=== PATIENT | male | born 1950 | race Caucasian/White ===

== ENCOUNTER → 2020-09-06 | Outpatient (CLI) | payer BC ==
[~2020-09-06] MED LIST: APIX5TAB PO; LOSA1TAB19 PO; METO50TA82 PO
[2020-09-06 14:34] LABS: ALBUMIN 3.6 g/dL (3.4-5.0); ANION GAP 5 mmol/L (5-15); CALCIUM 8.9 mg/dL (8.5-10.1); CHLORIDE 107 mmol/L (98-107)
[2020-09-06 14:38] LABS: ALANINE AMINOTRANSFERASE 31 U/L (12-78); ALKALINE PHOSPHATASE 82 U/L (45-117); BASOPHILS % (AUTO) 1 % (0-1); BILIRUBIN,TOTAL 0.8 mg/dL (0.2-1.0); CREATININE 1.24 mg/dL (0.7-1.3); EOSINOPHILS % (AUTO) 2 % (1-7); LYMPHOCYTES % (AUTO) 24 % (22-44); MEAN CORPUSCULAR HEMOGLOBIN 34.5 pg (27.5-34.5); MEAN CORPUSCULAR HGB CONC 34.8 g/dL (33.2-36.2); MEAN PLATELET VOLUME 10.8 fL (7.4-10.4); MONOCYTES % (AUTO) 10 % (2-9); NEUTROPHILS % (AUTO) 65 % (42-75); PLATELET COUNT 213 x10^3/uL (130-400); RED BLOOD COUNT 5.19 x10^6/uL (4.38-5.82); TOTAL PROTEIN 7.2 g/dL (6.4-8.2)
== END | disposition home or self-care (01) ==
LOC: STAR 13:14
PROVIDERS: ATTEND Urology
DX: Z01.818 Encounter for other preprocedural examination (principal); C61 Malignant neoplasm of prostate; R94.31 Abnormal electrocardiogram [ECG] [EKG]; R00.1 Bradycardia, unspecified; I44.0 Atrioventricular block, first degree; I21.19 ST elevation (STEMI) myocardial infarction involving other coronary artery of inferior wall; Z20.822 Contact with and (suspected) exposure to COVID-19
CPT/HCPCS: 36415; 80053; 85025; 93005; U0003; U0005

== ENCOUNTER 2020-09-12 11:00 | Inpatient (IN) | payer BC ==
[~2020-09-12] VITALS: Ht 185.4 cm; Wt 96.2 kg
[~2020-09-12 11:00] MED LIST changes: +FENTANYL PF 250 MCG/5ML ONE; +MIDAZOLAM 1 MG/ML, 2ML ONE
[2020-09-12] MEDS ORDERED: CHLORHEXIDINE 15 ML UDC PO ONE (11:30)
[2020-09-12] MEDS ORDERED: LACTATED RINGERS 1,000 ML IV SCH (11:30)
[2020-09-12 11:31] VITALS: BP 144/100
[2020-09-12] MEDS ORDERED: CHLORHEXIDINE 15 ML UDC ONE (11:39)
[2020-09-12] MEDS ORDERED: OPIUM/BELLADONNA SUPP.RECT 16.2-60 MG ONE (11:48)
[2020-09-12] MEDS ORDERED: BUPIVACAINE/PF 0.25% ONE (11:48)
[2020-09-12] MEDS ORDERED: LOVENOX INJ (12:06)
[2020-09-12] MEDS ORDERED: SUGAMMADEX 200 MG/2 ML IVPush ONE (12:19)
[2020-09-12] MEDS ORDERED: DEXAMETHASONE 4 MG/ML, 1ML ONE (12:19)
[2020-09-12] MEDS ORDERED: PROPOFOL 10 MG/ML, 20ML ONE (12:19)
[2020-09-12] MEDS ORDERED: SUCCINYLCHOLINE 20 MG/ML, 10ML ONE (12:19)
[2020-09-12] MEDS ORDERED: CEFAZOLIN 1,000 MG ONE (12:19)
[2020-09-12] MEDS ORDERED: ROCURONIUM 10 MG/ML,10ML ONE (12:19)
[2020-09-12] MEDS ORDERED: ONDANSETRON 2MG/ML, 2ML ONE ×2 (12:19→20:42)
[2020-09-12] MEDS ORDERED: FENTANYL PF 100 MCG/2ML ONE ×2 (16:48→17:43)
[2020-09-12] MEDS: FENTANYL PF 100 MCG/2ML IV PRN ×4 (16:50→18:01)
[2020-09-12] MEDS ORDERED: LABETALOL 5MG/ML, 20ML IV PRN (17:00)
[2020-09-12] MEDS ORDERED: ONDANSETRON 2MG/ML, 2ML IVPush PRN (17:00)
[2020-09-12] MEDS ORDERED: OXYcodone 5 MG/5 ML ORAL.SOL UDC PO PRN (17:00)
[2020-09-12] MEDS ORDERED: ALBUTEROL SULFATE 2.5 MG/3 ML NPPB PRN (17:00)
[2020-09-12] MEDS ORDERED: PROMETHAZINE 25 MG/ML, 1ML IV PRN (17:00)
[2020-09-12] MEDS ORDERED: hydrALAzine 20 MG/ML, 1ML IV PRN (17:00)
[2020-09-12] MEDS ORDERED: MEPERIDINE/PF 25MG/0.5ML IVPush PRN (17:00)
[2020-09-12] MEDS ORDERED: METOCLOPRAMIDE 5 MG/ML, 2ML IV PRN (17:00)
[2020-09-12] MEDS ORDERED: HYDROmorphone 1 MG/ML, 1ML INJ IV PRN (17:00)
[2020-09-12] MEDS ORDERED: DIAZEPAM 5 MG/ML, 2ML IV PRN ×2 (17:00)
[2020-09-12] MEDS ORDERED: KETOROLAC 30 MG/1 ML IV PRN (17:00)
[2020-09-12] MEDS ORDERED: OXYcodone 5 MG/5 ML ORAL.SOL UDC ONE (17:26)
[2020-09-12 19:15] VITALS: BP 109/74
[2020-09-12] MEDS: FAMOTIDINE 20 MG/2 ML IVPush SCH (20:45)
[2020-09-12] MEDS: MORPHINE SULFATE 4 MG/ML, 1ML IV PRN (20:45)
[2020-09-12] MEDS: ACETAMINOPHEN 500 MG TABLET PO SCH (20:45)
[2020-09-12] MEDS: LOSARTAN 25MG TABLET PO SCH (21:00)
[2020-09-12] MEDS: ONDANSETRON 2MG/ML, 2ML IVPush PRN (21:35)
[2020-09-13 00:12] VITALS: BP 89/64
[2020-09-13] MEDS: D5%-0.45NACL+KCL 20MEQ 1,000 ML IV SCH ×3 (01:28→20:07)
[2020-09-13] MEDS: MORPHINE SULFATE 4 MG/ML, 1ML IV PRN ×2 (01:28→04:09)
[2020-09-13] MEDS: ACETAMINOPHEN 500 MG TABLET PO SCH ×3 (02:52→18:35)
[2020-09-13] MEDS: OPIUM/BELLADONNA SUPP.RECT 16.2-60 MG PR PRN ×3 (02:52→18:35)
[2020-09-13] MEDS: ONDANSETRON 2MG/ML, 2ML IVPush PRN ×2 (02:53→07:05)
[2020-09-13 03:49] VITALS: BP 93/65
[2020-09-13 05:43] LABS: ANION GAP 6 mmol/L (5-15); CALCIUM 7.9 mg/dL (8.5-10.1); CHLORIDE 109 mmol/L (98-107); CREATININE 1.16 mg/dL (0.7-1.3)
[2020-09-13] MEDS ORDERED: ENOXAPARIN 40 MG/0.4 ML SQ ONE (06:00)
[2020-09-13 07:39] VITALS: BP 117/79
[2020-09-13] MEDS: FAMOTIDINE 20 MG/2 ML IVPush SCH ×2 (07:51→20:08)
[2020-09-13] MEDS: LOSARTAN 25MG TABLET PO SCH ×2 (07:51→20:08)
[2020-09-13] MEDS: OXYcodone IR 5MG TABLET PO PRN ×2 (07:51→18:36)
[2020-09-13] MEDS: HYDROCHLOROTHIAZIDE 12.5 MG CAPSULE PO SCH (07:51)
[2020-09-13] MEDS: METOPROLOL TARTRATE 50 MG TAB PO SCH (09:00)
[2020-09-13 12:38] LABS: BASOPHILS % (AUTO) 0 % (0-1); EOSINOPHILS % (AUTO) 0 % (1-7); LYMPHOCYTES % (AUTO) 7 % (22-44); MEAN CORPUSCULAR HEMOGLOBIN 34.4 pg (27.5-34.5); MEAN CORPUSCULAR HGB CONC 34.9 g/dL (33.2-36.2); MEAN PLATELET VOLUME 10.7 fL (7.4-10.4); MONOCYTES % (AUTO) 10 % (2-9); NEUTROPHILS % (AUTO) 84 % (42-75); PLATELET COUNT 199 x10^3/uL (130-400); RED BLOOD COUNT 3.47 x10^6/uL (4.38-5.82); RED CELL DISTRIBUTION WIDTH 12.6 % (9.4-14.8)
[2020-09-13 13:30] VITALS: BP 100/68
[2020-09-13 19:00] VITALS: BP 104/69
[2020-09-14] MEDS: ACETAMINOPHEN 500 MG TABLET PO SCH ×4 (00:54→22:22)
[2020-09-14 00:58] VITALS: BP 98/69
[2020-09-14] MEDS: D5%-0.45NACL+KCL 20MEQ 1,000 ML IV SCH ×3 (03:59→23:52)
[2020-09-14] MEDS: OPIUM/BELLADONNA SUPP.RECT 16.2-60 MG PR PRN ×2 (03:59→22:21)
[2020-09-14 05:49] LABS: BASOPHILS % (AUTO) 0 % (0-1); EOSINOPHILS % (AUTO) 0 % (1-7); LYMPHOCYTES % (AUTO) 14 % (22-44); MEAN CORPUSCULAR HEMOGLOBIN 35.2 pg (27.5-34.5); MEAN CORPUSCULAR HGB CONC 35.4 g/dL (33.2-36.2); MEAN PLATELET VOLUME 10.6 fL (7.4-10.4); MONOCYTES % (AUTO) 10 % (2-9); NEUTROPHILS % (AUTO) 75 % (42-75); PLATELET COUNT 163 x10^3/uL (130-400); RED BLOOD COUNT 2.77 x10^6/uL (4.38-5.82); RED CELL DISTRIBUTION WIDTH 12.8 % (9.4-14.8)
[2020-09-14 07:20] VITALS: BP 100/64
[2020-09-14] MEDS: LOSARTAN 25MG TABLET PO SCH ×2 (07:42→22:22)
[2020-09-14] MEDS: FAMOTIDINE 20 MG/2 ML IVPush SCH ×2 (07:43→22:22)
[2020-09-14] MEDS: OXYcodone IR 5MG TABLET PO PRN ×2 (07:43→15:22)
[2020-09-14] MEDS: HYDROCHLOROTHIAZIDE 12.5 MG CAPSULE PO SCH (07:43)
[2020-09-14] MEDS: METOPROLOL TARTRATE 50 MG TAB PO SCH (07:44)
[2020-09-14] MEDS ORDERED: SODIUM CHLORIDE 0.9% 250 ML IV SCH (08:00)
[2020-09-14] MEDS: MORPHINE SULFATE 4 MG/ML, 1ML IV PRN (10:47)
[2020-09-14 13:02] LABS: BASOPHILS % (AUTO) 1 % (0-1); EOSINOPHILS % (AUTO) 0 % (1-7); LYMPHOCYTES % (AUTO) 14 % (22-44); MEAN CORPUSCULAR HGB CONC 34.9 g/dL (33.2-36.2); MEAN PLATELET VOLUME 10.1 fL (7.4-10.4); MONOCYTES % (AUTO) 8 % (2-9); NEUTROPHILS % (AUTO) 78 % (42-75); PLATELET COUNT 166 x10^3/uL (130-400); RED BLOOD COUNT 2.75 x10^6/uL (4.38-5.82); RED CELL DISTRIBUTION WIDTH 12.6 % (9.4-14.8)
[2020-09-14 15:23] LABS: ANION GAP 4 mmol/L (5-15); CALCIUM 7.8 mg/dL (8.5-10.1); CHLORIDE 105 mmol/L (98-107)
[2020-09-14 18:08] LABS: BASOPHILS % (AUTO) 0 % (0-1); EOSINOPHILS % (AUTO) 0 % (1-7); LYMPHOCYTES % (AUTO) 20 % (22-44); MEAN CORPUSCULAR HEMOGLOBIN 34.9 pg (27.5-34.5); MEAN CORPUSCULAR HGB CONC 34.8 g/dL (33.2-36.2); MEAN PLATELET VOLUME 9.7 fL (7.4-10.4); MONOCYTES % (AUTO) 8 % (2-9); NEUTROPHILS % (AUTO) 72 % (42-75); PLATELET COUNT 192 x10^3/uL (130-400); RED BLOOD COUNT 2.86 x10^6/uL (4.38-5.82); RED CELL DISTRIBUTION WIDTH 12.6 % (9.4-14.8)
[2020-09-14 19:42] VITALS: BP 103/68
[2020-09-15 00:55] VITALS: BP 120/71
[2020-09-15] MEDS: ACETAMINOPHEN 500 MG TABLET PO SCH ×4 (04:30→23:00)
[2020-09-15 05:42] LABS: BASOPHILS % (AUTO) 0 % (0-1); EOSINOPHILS % (AUTO) 1 % (1-7); LYMPHOCYTES % (AUTO) 17 % (22-44); MEAN CORPUSCULAR HEMOGLOBIN 35.3 pg (27.5-34.5); MEAN CORPUSCULAR HGB CONC 35.1 g/dL (33.2-36.2); MEAN PLATELET VOLUME 10.1 fL (7.4-10.4); MONOCYTES % (AUTO) 9 % (2-9); NEUTROPHILS % (AUTO) 73 % (42-75); PLATELET COUNT 192 x10^3/uL (130-400); RED BLOOD COUNT 2.84 x10^6/uL (4.38-5.82); RED CELL DISTRIBUTION WIDTH 12.6 % (9.4-14.8)
[2020-09-15 06:50] VITALS: BP 109/71
[2020-09-15] MEDS: METOPROLOL TARTRATE 50 MG TAB PO SCH (09:00)
[2020-09-15] MEDS: FAMOTIDINE 20 MG/2 ML IVPush SCH ×2 (09:29→20:45)
[2020-09-15] MEDS: HYDROCHLOROTHIAZIDE 12.5 MG CAPSULE PO SCH (09:29)
[2020-09-15] MEDS: LOSARTAN 25MG TABLET PO SCH ×2 (09:29→20:45)
[2020-09-15] MEDS: D5%-0.45NACL+KCL 20MEQ 1,000 ML IV SCH (09:30)
[2020-09-15] MEDS: ONDANSETRON 2MG/ML, 2ML IVPush PRN (09:36)
[2020-09-15 14:22] VITALS: BP 120/78
[2020-09-15] MEDS ORDERED: ENOXAPARIN 40 MG/0.4 ML SQ ONE (14:30)
[2020-09-15] MEDS: ENOXAPARIN 40 MG/0.4 ML SQ SCH (14:30)
[2020-09-15 16:26] LABS: BASOPHILS % (AUTO) 0 % (0-1); EOSINOPHILS % (AUTO) 0 % (1-7); LYMPHOCYTES % (AUTO) 10 % (22-44); MEAN CORPUSCULAR HEMOGLOBIN 35.2 pg (27.5-34.5); MEAN CORPUSCULAR HGB CONC 35.6 g/dL (33.2-36.2); MEAN PLATELET VOLUME 9.6 fL (7.4-10.4); MONOCYTES % (AUTO) 7 % (2-9); NEUTROPHILS % (AUTO) 82 % (42-75); PLATELET COUNT 209 x10^3/uL (130-400); RED BLOOD COUNT 2.94 x10^6/uL (4.38-5.82); RED CELL DISTRIBUTION WIDTH 12.7 % (9.4-14.8)
[2020-09-15 19:00] VITALS: BP 105/70
[2020-09-15] MEDS: OXYcodone IR 5MG TABLET PO PRN (19:13)
[2020-09-15] MEDS: OPIUM/BELLADONNA SUPP.RECT 16.2-60 MG PR PRN (20:45)
[2020-09-15] MEDS: MORPHINE SULFATE 4 MG/ML, 1ML IV PRN (21:17)
[2020-09-16 02:19] VITALS: BP 122/79
[2020-09-16] MEDS: D5%-0.45NACL+KCL 20MEQ 1,000 ML IV SCH ×3 (02:48→20:48)
[2020-09-16] MEDS: OPIUM/BELLADONNA SUPP.RECT 16.2-60 MG PR PRN ×2 (05:19→20:49)
[2020-09-16] MEDS: ACETAMINOPHEN 500 MG TABLET PO SCH ×4 (05:19→23:00)
[2020-09-16] MEDS: MORPHINE SULFATE 4 MG/ML, 1ML IV PRN ×3 (05:48→18:24)
[2020-09-16 05:58] LABS: BASOPHILS % (AUTO) 0 % (0-1); EOSINOPHILS % (AUTO) 2 % (1-7); LYMPHOCYTES % (AUTO) 13 % (22-44); MEAN CORPUSCULAR HEMOGLOBIN 35.6 pg (27.5-34.5); MEAN CORPUSCULAR HGB CONC 35.6 g/dL (33.2-36.2); MEAN PLATELET VOLUME 10.1 fL (7.4-10.4); MONOCYTES % (AUTO) 7 % (2-9); NEUTROPHILS % (AUTO) 78 % (42-75); PLATELET COUNT 200 x10^3/uL (130-400); RED BLOOD COUNT 2.77 x10^6/uL (4.38-5.82); RED CELL DISTRIBUTION WIDTH 12.9 % (9.4-14.8)
[2020-09-16 07:22] VITALS: BP 112/70
[2020-09-16] MEDS: METOPROLOL TARTRATE 50 MG TAB PO SCH (09:00)
[2020-09-16] MEDS ORDERED: ENOXAPARIN 40 MG/0.4 ML SQ SCH (09:00)
[2020-09-16] MEDS: HYDROCHLOROTHIAZIDE 12.5 MG CAPSULE PO SCH (11:00)
[2020-09-16] MEDS: FAMOTIDINE 20 MG/2 ML IVPush SCH ×2 (11:00→20:48)
[2020-09-16] MEDS: LOSARTAN 25MG TABLET PO SCH ×2 (11:00→20:48)
[2020-09-16] MEDS: ENOXAPARIN 40 MG/0.4 ML SQ SCH (11:35)
[2020-09-16 14:05] VITALS: BP 123/81
[2020-09-16 20:14] VITALS: BP 106/70
[2020-09-16] MEDS: ONDANSETRON 2MG/ML, 2ML IVPush PRN (20:48)
[2020-09-17 03:55] VITALS: BP 97/64
[2020-09-17] MEDS: ACETAMINOPHEN 500 MG TABLET PO SCH ×4 (04:23→22:45)
[2020-09-17] MEDS: D5%-0.45NACL+KCL 20MEQ 1,000 ML IV SCH ×3 (04:24→22:43)
[2020-09-17] MEDS: ONDANSETRON 2MG/ML, 2ML IVPush PRN ×3 (04:28→22:42)
[2020-09-17 07:48] VITALS: BP 110/74
[2020-09-17] MEDS: METOPROLOL TARTRATE 50 MG TAB PO SCH (08:16)
[2020-09-17] MEDS: FAMOTIDINE 20 MG/2 ML IVPush SCH ×2 (08:16→22:44)
[2020-09-17] MEDS: LOSARTAN 25MG TABLET PO SCH ×2 (08:16→22:44)
[2020-09-17] MEDS: HYDROCHLOROTHIAZIDE 12.5 MG CAPSULE PO SCH (08:17)
[2020-09-17] MEDS ORDERED: ONDANSETRON 2MG/ML, 2ML ONE (10:08)
[2020-09-17 10:33] LABS: ANION GAP 3 mmol/L (5-15); CALCIUM 8.5 mg/dL (8.5-10.1); CHLORIDE 104 mmol/L (98-107); CREATININE 0.95 mg/dL (0.7-1.3)
[2020-09-17] MEDS: METOCLOPRAMIDE 5 MG/ML, 2ML IVPush SCH ×3 (11:36→22:45)
[2020-09-17] MEDS ORDERED: ONDANSETRON 2MG/ML, 2ML IVPush PRN (13:00)
[2020-09-17 13:56] VITALS: BP 98/61
[2020-09-17] MEDS: ENOXAPARIN 40 MG/0.4 ML SQ SCH (15:17)
[2020-09-17 18:46] VITALS: BP 114/66
[2020-09-18 01:33] VITALS: BP 109/69
[2020-09-18] MEDS: ACETAMINOPHEN 500 MG TABLET PO SCH ×4 (05:53→22:05)
[2020-09-18] MEDS: OPIUM/BELLADONNA SUPP.RECT 16.2-60 MG PR PRN ×2 (05:53→23:39)
[2020-09-18] MEDS: D5%-0.45NACL+KCL 20MEQ 1,000 ML IV SCH ×4 (05:53→22:20)
[2020-09-18] MEDS: ONDANSETRON 2MG/ML, 2ML IVPush PRN (05:53)
[2020-09-18] MEDS: METOCLOPRAMIDE 5 MG/ML, 2ML IVPush SCH ×4 (05:56→22:05)
[2020-09-18 07:59] VITALS: BP 122/78
[2020-09-18] MEDS: METOPROLOL TARTRATE 50 MG TAB PO SCH (08:37)
[2020-09-18] MEDS: LOSARTAN 25MG TABLET PO SCH ×2 (08:45→22:13)
[2020-09-18] MEDS: HYDROCHLOROTHIAZIDE 12.5 MG CAPSULE PO SCH (08:45)
[2020-09-18] MEDS: FAMOTIDINE 20 MG/2 ML IVPush SCH ×2 (08:45→22:13)
[2020-09-18 13:32] VITALS: BP 117/78
[2020-09-18] MEDS: ENOXAPARIN 40 MG/0.4 ML SQ SCH (15:38)
[2020-09-18 19:17] VITALS: BP 107/67
[2020-09-19 01:48] VITALS: BP 105/69
[2020-09-19] MEDS: METOCLOPRAMIDE 5 MG/ML, 2ML IVPush SCH (05:50)
[2020-09-19] MEDS: ACETAMINOPHEN 500 MG TABLET PO SCH ×4 (05:50→22:58)
[2020-09-19] MEDS: D5%-0.45NACL+KCL 20MEQ 1,000 ML IV SCH ×3 (06:47→23:12)
[2020-09-19 07:43] VITALS: BP 115/71
[2020-09-19] MEDS: METOPROLOL TARTRATE 50 MG TAB PO SCH (08:42)
[2020-09-19] MEDS: HYDROCHLOROTHIAZIDE 12.5 MG CAPSULE PO SCH (08:51)
[2020-09-19] MEDS: NITROFURANTOIN (MACROBID) 100 MG CAPSULE PO SCH ×2 (08:51→22:57)
[2020-09-19] MEDS: FAMOTIDINE 20 MG/2 ML IVPush SCH ×2 (08:52→20:54)
[2020-09-19] MEDS: LOSARTAN 25MG TABLET PO SCH ×2 (08:52→22:57)
[2020-09-19] MEDS: ENOXAPARIN 40 MG/0.4 ML SQ SCH (15:32)
[2020-09-19 19:03] VITALS: BP 102/66
[2020-09-19] MEDS: MORPHINE SULFATE 4 MG/ML, 1ML IV PRN ×2 (20:54→23:04)
[2020-09-19] MEDS: ONDANSETRON 2MG/ML, 2ML IVPush PRN (20:54)
[2020-09-20 01:51] VITALS: BP 110/77
[2020-09-20] MEDS: OPIUM/BELLADONNA SUPP.RECT 16.2-60 MG PR PRN (02:04)
[2020-09-20] MEDS: ACETAMINOPHEN 500 MG TABLET PO SCH ×2 (05:00→10:05)
[2020-09-20] MEDS: D5%-0.45NACL+KCL 20MEQ 1,000 ML IV SCH ×2 (06:45→14:00)
[2020-09-20 07:20] VITALS: BP 124/80
[2020-09-20] MEDS: NITROFURANTOIN (MACROBID) 100 MG CAPSULE PO SCH (08:40)
[2020-09-20] MEDS: LOSARTAN 25MG TABLET PO SCH (08:41)
[2020-09-20] MEDS: FAMOTIDINE 20 MG/2 ML IVPush SCH (08:41)
[2020-09-20] MEDS: HYDROCHLOROTHIAZIDE 12.5 MG CAPSULE PO SCH (08:41)
[2020-09-20] MEDS: METOPROLOL TARTRATE 50 MG TAB PO SCH (08:41)
[2020-09-20 12:35] VITALS: BP 115/75
[2020-09-20] MEDS ORDERED: NITR100C56 PO (12:41)
[2020-09-20] MEDS ORDERED: HYDR-2214 PO (12:41)
[2020-09-20] MEDS ORDERED: OPIU1SUP PR (12:41)
[2020-09-20] MEDS: ENOXAPARIN 40 MG/0.4 ML SQ SCH (14:29)
== END 2020-09-20 15:15 | disposition home or self-care (01) | DRG 707 ==
LOC: OUT 11:00 → 4NE 18:53 → OUT 21:30 → 4NE 21:31 → DCLOUNGE 09-20 15:09
PROVIDERS: ADMIT Urology; ATTEND Urology
PROC: 8E0W4CZ Robotic Assisted Procedure of Trunk Region, Percutaneous Endoscopic Approach (ICD-10-PCS; 2020-09-12)
PROC: 0VT00ZZ Resection of Prostate, Open Approach (ICD-10-PCS; principal; 2020-09-12 13:00)
DX: C61 Malignant neoplasm of prostate (principal); N99.820 Postprocedural hemorrhage of a genitourinary system organ or structure following a genitourinary system procedure; K91.89 Other postprocedural complications and disorders of digestive system; K56.7 Ileus, unspecified; K66.0 Peritoneal adhesions (postprocedural) (postinfection)
CPT/HCPCS: 36415; 51600; 74177; 74430; 80048; 82570; 85014; 85018; 85025; 86850; 86900; 86923; 88305; 88307; G0378; J0690; J1100; J1650; J2250; J2405; J2704; J3010; C1760; J0330; J2270; J2765; J3480; J7120; Q9958

== ENCOUNTER 2020-09-22 22:07 | Inpatient (IN) | payer BC, MEDICARE ==
[~2020-09-22] VITALS: Ht 185.4 cm; Wt 70.1 kg
[~2020-09-22 22:07] MED LIST changes: -FENTANYL PF 250 MCG/5ML ONE; +HYDR-2214 PO; +LOVENOX INJ; -MIDAZOLAM 1 MG/ML, 2ML ONE; +NITR100C56 PO; +OPIU1SUP PR
--- NOTE | 2020-09-22 23:46 | NUR ---
Report given to Humphrey OLIVEIRA on Onc.
[2020-09-23] MEDS ORDERED: morphine SULFATE 10 MG/ML, 1ML IVPush PRN
[2020-09-23] MEDS ORDERED: HYDROcodone/APAP 5/325 TABLET PO PRN
[2020-09-23 00:30] VITALS: BP 115/77
[2020-09-23] MEDS ORDERED: ACETAMINOPHEN 325 MG TABLET PO PRN (00:30)
[2020-09-23] MEDS ORDERED: BISACODYL 10 MG SUPP PR PRN (00:30)
[2020-09-23] MEDS ORDERED: POLYETHYLENE GLYCOL 17 GM PACKET PO PRN (00:30)
[2020-09-23] MEDS ORDERED: ONDANSETRON ODT 4 MG PO PRN (00:30)
[2020-09-23] MEDS ORDERED: POTASSIUM CHLORIDE 20 MEQ TAB.ER.PRT PO ONE (00:30)
[2020-09-23] MEDS: OPIUM/BELLADONNA SUPP.RECT 16.2-60 MG PR PRN (01:01)
[2020-09-23 05:02] LABS: BASOPHILS % (AUTO) 1 % (0-1); EOSINOPHILS % (AUTO) 4 % (1-7); LYMPHOCYTES % (AUTO) 9 % (22-44); MEAN CORPUSCULAR HEMOGLOBIN 34.9 pg (27.5-34.5); MEAN PLATELET VOLUME 8.6 fL (7.4-10.4); MONOCYTES % (AUTO) 8 % (2-9); NEUTROPHILS % (AUTO) 80 % (42-75); PLATELET COUNT 348 x10^3/uL (130-400); RED BLOOD COUNT 3.03 x10^6/uL (4.38-5.82); RED CELL DISTRIBUTION WIDTH 13.4 % (9.4-14.8)
[2020-09-23 05:06] LABS: ANION GAP 5 mmol/L (5-15); CHLORIDE 110 mmol/L (98-107)
[2020-09-23 05:08] LABS: CREATININE 0.77 mg/dL (0.7-1.3)
[2020-09-23 05:12] LABS: MICROSCOPIC AUTO
[2020-09-23] MEDS ORDERED: METOPROLOL TARTRATE 50 MG TAB PO SCH (09:00)
[2020-09-23] MEDS ORDERED: ENOXAPARIN 80 MG/0.8 ML SQ SCH ×2 (09:00→22:00)
[2020-09-23] MEDS ORDERED: TEMPLATE NON-FORMULARY MED. (Losartan/Hydrochlorothiazide** (Losartan-Hctz 50-12.5 Mg Tab HOMEMEDPO SCH (09:00)
[2020-09-23 09:05] VITALS: BP 107/72
[2020-09-23] MEDS: SODIUM CHLORIDE FLUSH 10ML SYR IVF SCH ×2 (10:03→20:10)
[2020-09-23] MEDS: SENNA/DOCUSATE TABLET PO SCH (10:03)
[2020-09-23 11:07] LABS: HCT (SEDRATE) 31.6 % (39.2-51.8)
[2020-09-23 15:59] VITALS: BP 96/60
[2020-09-23 17:57] VITALS: BP 113/80
[2020-09-23] MEDS ORDERED: CEFTRIAXONE 1,000 MG in DEXTROSE 5% 50 ML IVPB SCH (20:00)
[2020-09-23 20:23] VITALS: BP 98/73
[2020-09-24 00:32] VITALS: BP 103/60
[2020-09-24] MEDS: LOSARTAN 50MG TABLET PO SCH (07:19)
[2020-09-24] MEDS: METOPROLOL TARTRATE 25 MG TAB PO SCH (07:19)
[2020-09-24] MEDS: SENNA/DOCUSATE TABLET PO SCH (07:19)
[2020-09-24] MEDS ORDERED: LIDOCAINE 1%, 20ML ONE (07:51)
[2020-09-24] MEDS ORDERED: FENTANYL PF 100 MCG/2ML ONE (07:57)
[2020-09-24] MEDS ORDERED: NALOXONE 1 MG/ML, 2ML ONE (07:57)
[2020-09-24] MEDS ORDERED: FLUMAZENIL 0.1 MG/1 ML, 5ML ONE (07:57)
[2020-09-24] MEDS ORDERED: MIDAZOLAM 1 MG/ML, 5ML ONE (07:57)
[2020-09-24 09:00] VITALS: BP 108/72
[2020-09-24] MEDS: PIPERACILLIN/TAZO 3.375 GM in DEXTROSE 5% 50 ML IVPB SCH ×2 (09:59→17:53)
[2020-09-24] MEDS: SODIUM CHLORIDE FLUSH 10ML SYR IVF SCH ×2 (09:59→21:10)
[2020-09-24] MEDS: ENOXAPARIN 80 MG/0.8 ML SQ SCH ×2 (11:10→22:49)
[2020-09-24 12:57] VITALS: BP 103/69
[2020-09-24 20:09] VITALS: BP 108/71
[2020-09-24] MEDS: OPIUM/BELLADONNA SUPP.RECT 16.2-60 MG PR PRN (21:10)
[2020-09-25 00:03] VITALS: BP 112/71
[2020-09-25] MEDS: PIPERACILLIN/TAZO 3.375 GM in DEXTROSE 5% 50 ML IVPB SCH ×3 (02:04→17:52)
[2020-09-25 03:44] VITALS: BP 146/89
[2020-09-25 05:08] LABS: BASOPHILS % (AUTO) 1 % (0-1); EOSINOPHILS % (AUTO) 6 % (1-7); LYMPHOCYTES % (AUTO) 20 % (22-44); MEAN CORPUSCULAR HEMOGLOBIN 34.4 pg (27.5-34.5); MEAN CORPUSCULAR HGB CONC 34.6 g/dL (33.2-36.2); MEAN PLATELET VOLUME 8.6 fL (7.4-10.4); MONOCYTES % (AUTO) 10 % (2-9); NEUTROPHILS % (AUTO) 64 % (42-75); PLATELET COUNT 378 x10^3/uL (130-400); RED CELL DISTRIBUTION WIDTH 13.4 % (9.4-14.8)
[2020-09-25 05:19] LABS: ANION GAP 4 mmol/L (5-15); CALCIUM 8.2 mg/dL (8.5-10.1); CHLORIDE 110 mmol/L (98-107)
[2020-09-25] MEDS: LOSARTAN 50MG TABLET PO SCH (07:37)
[2020-09-25] MEDS: METOPROLOL TARTRATE 25 MG TAB PO SCH (07:38)
[2020-09-25] MEDS: SENNA/DOCUSATE TABLET PO SCH (07:47)
[2020-09-25] MEDS: SODIUM CHLORIDE FLUSH 10ML SYR IVF SCH ×2 (07:47→20:40)
[2020-09-25 08:04] VITALS: BP 122/81
[2020-09-25 14:17] VITALS: BP 111/72
[2020-09-25 20:40] VITALS: BP 124/82
[2020-09-25] MEDS: ZOLPIDEM 5MG TABLET PO PRN (21:54)
[2020-09-26] MEDS: PIPERACILLIN/TAZO 3.375 GM in DEXTROSE 5% 50 ML IVPB SCH ×3 (02:01→18:15)
[2020-09-26 02:05] VITALS: BP 103/69
[2020-09-26 05:26] LABS: BASOPHILS % (AUTO) 1 % (0-1); EOSINOPHILS % (AUTO) 6 % (1-7); LYMPHOCYTES % (AUTO) 24 % (22-44); MEAN CORPUSCULAR HEMOGLOBIN 34.4 pg (27.5-34.5); MEAN CORPUSCULAR HGB CONC 34.8 g/dL (33.2-36.2); MEAN PLATELET VOLUME 8.8 fL (7.4-10.4); MONOCYTES % (AUTO) 8 % (2-9); NEUTROPHILS % (AUTO) 61 % (42-75); PLATELET COUNT 404 x10^3/uL (130-400); RED BLOOD COUNT 3.01 x10^6/uL (4.38-5.82); RED CELL DISTRIBUTION WIDTH 13.3 % (9.4-14.8)
[2020-09-26 05:37] LABS: ANION GAP 4 mmol/L (5-15); CALCIUM 8.2 mg/dL (8.5-10.1); CHLORIDE 113 mmol/L (98-107)
[2020-09-26 05:39] LABS: CREATININE 0.87 mg/dL (0.7-1.3)
[2020-09-26] MEDS: ASPIRIN 81 MG TABLET EC PO SCH (06:06)
[2020-09-26 06:59] VITALS: BP 119/80
[2020-09-26] MEDS: SENNA/DOCUSATE TABLET PO SCH (09:00)
[2020-09-26] MEDS: SODIUM CHLORIDE FLUSH 10ML SYR IVF SCH ×2 (09:16→20:56)
[2020-09-26] MEDS: METOPROLOL TARTRATE 25 MG TAB PO SCH (09:16)
[2020-09-26] MEDS: LOSARTAN 50MG TABLET PO SCH (09:16)
[2020-09-26 13:08] VITALS: BP 113/76
[2020-09-26 18:44] VITALS: BP 118/76
[2020-09-26] MEDS: ZOLPIDEM 5MG TABLET PO PRN (20:55)
[2020-09-27 01:00] VITALS: BP 112/74
[2020-09-27] MEDS: PIPERACILLIN/TAZO 3.375 GM in DEXTROSE 5% 50 ML IVPB SCH ×2 (02:30→10:32)
[2020-09-27] MEDS: ASPIRIN 81 MG TABLET EC PO SCH (05:22)
[2020-09-27 06:53] VITALS: BP 120/83
[2020-09-27] MEDS: METOPROLOL TARTRATE 25 MG TAB PO SCH (08:59)
[2020-09-27] MEDS: SENNA/DOCUSATE TABLET PO SCH (08:59)
[2020-09-27] MEDS: LOSARTAN 50MG TABLET PO SCH (08:59)
[2020-09-27] MEDS: SODIUM CHLORIDE FLUSH 10ML SYR IVF SCH ×2 (09:00→20:38)
[2020-09-27] MEDS: AMPICILLIN/SULBACTAM 1,500 MG in SODIUM CHLORIDE 0.9% 50 ML IV SCH ×2 (12:38→17:51)
[2020-09-27 12:55] VITALS: BP 111/77
[2020-09-27] MEDS ORDERED: OMNIPAQUE 350 MG/ML, 100ML BOTTLE ONE (15:36)
[2020-09-27 18:47] VITALS: BP 106/72
[2020-09-27] MEDS: APIXABAN 5 MG TABLET PO SCH (20:38)
[2020-09-28] MEDS: AMPICILLIN/SULBACTAM 1,500 MG in SODIUM CHLORIDE 0.9% 50 ML IV SCH ×4 (00:20→18:39)
[2020-09-28 01:05] VITALS: BP 119/76
[2020-09-28 08:02] VITALS: BP 111/73
[2020-09-28] MEDS: LOSARTAN 50MG TABLET PO SCH (08:45)
[2020-09-28] MEDS: SENNA/DOCUSATE TABLET PO SCH (08:45)
[2020-09-28] MEDS: APIXABAN 5 MG TABLET PO SCH ×2 (08:45→20:07)
[2020-09-28] MEDS: METOPROLOL TARTRATE 25 MG TAB PO SCH (08:45)
[2020-09-28] MEDS: SODIUM CHLORIDE FLUSH 10ML SYR IVF SCH ×2 (08:48→20:07)
[2020-09-28] MEDS ORDERED: ALBUTEROL SULFATE 2.5 MG/3 ML NPPB ONE (11:00)
[2020-09-28 15:00] VITALS: BP 103/72
[2020-09-28 19:59] VITALS: BP 110/76
[2020-09-29] MEDS: AMPICILLIN/SULBACTAM 1,500 MG in SODIUM CHLORIDE 0.9% 50 ML IV SCH ×2 (00:22→06:05)
[2020-09-29] MEDS: OPIUM/BELLADONNA SUPP.RECT 16.2-60 MG PR PRN (00:30)
[2020-09-29 01:28] VITALS: BP 109/69
[2020-09-29] MEDS: METOPROLOL TARTRATE 25 MG TAB PO SCH (08:17)
[2020-09-29] MEDS: LOSARTAN 50MG TABLET PO SCH (08:18)
[2020-09-29] MEDS: APIXABAN 5 MG TABLET PO SCH (08:18)
[2020-09-29] MEDS: SODIUM CHLORIDE FLUSH 10ML SYR IVF SCH (08:20)
[2020-09-29] MEDS: SENNA/DOCUSATE TABLET PO SCH (08:23)
[2020-09-29 09:03] VITALS: BP 120/66
[2020-09-29] MEDS ORDERED: AMOXICILLIN/CLAV 875-125MG TABLET PO SCH (09:30)
[2020-09-29] MEDS ORDERED: ERTAPENEM 1 GM in SODIUM CHLORIDE 0.9% 50 ML IV ONE (09:30)
[2020-09-29] MEDS ORDERED: AMOX1TAB12 PO (11:34)
[2020-09-29 14:05] VITALS: BP 118/70
== END 2020-09-29 15:55 | disposition home or self-care (01) | DRG 920 ==
LOC: ED 22:15 → EDIP 09-23 00:03 → 4NW 09-23 00:16 → 4NE 09-23 20:35 → 4NW 09-23 20:35 → DCLOUNGE 09-29 11:18 → 4NW 09-29 11:31
PROVIDERS: ADMIT Family Medicine; ATTEND Family Medicine
PROC: 0W9J3ZZ Drainage of Pelvic Cavity, Percutaneous Approach (ICD-10-PCS; principal; 2020-09-24)
DX: N99.840 Postprocedural hematoma of a genitourinary system organ or structure following a genitourinary system procedure (principal); R78.81 Bacteremia; E87.6 Hypokalemia; N20.0 Calculus of kidney; Z88.8 Allergy status to other drugs, medicaments and biological substances; D64.9 Anemia, unspecified; I48.91 Unspecified atrial fibrillation; R32 Unspecified urinary incontinence; Z80.8 Family history of malignant neoplasm of other organs or systems; Z82.0 Family history of epilepsy and other diseases of the nervous system; Z85.46 Personal history of malignant neoplasm of prostate; Z86.711 Personal history of pulmonary embolism; Z86.718 Personal history of other venous thrombosis and embolism; Z87.442 Personal history of urinary calculi; Z90.79 Acquired absence of other genital organ(s); Y92.89 Other specified places as the place of occurrence of the external cause; D47.3 Essential (hemorrhagic) thrombocythemia
CPT/HCPCS: 36415; 49406; 71275; 75989; 80048; 81001; 84145; 85025; 85651; 86140; 87040; 87070; 87075; 87086; 87205; 94640; 99156; 99157; 99285; C1894; G0378; J1335; J1650; J2250; J2543; J3010; J7613; Q9967; C1729; C1769; J0295; J2310

== ENCOUNTER 2020-09-30 16:50 | Inpatient (IN) | payer BC, MEDICARE ==
[~2020-09-30] VITALS: Ht 185.4 cm; Wt 94.9 kg
[~2020-09-30 16:50] MED LIST changes: +AMOX1TAB12 PO
[2020-09-30] MEDS ORDERED: SODIUM CHLORIDE 0.9% 1,000ML IVBOLUS ONE (17:30)
[2020-09-30 17:44] LABS: BASOPHILS % (AUTO) 0 % (0-1); EOSINOPHILS % (AUTO) 0 % (1-7); LYMPHOCYTES % (AUTO) 1 % (22-44); MEAN CORPUSCULAR HEMOGLOBIN 32.6 pg (27.5-34.5); MEAN CORPUSCULAR HGB CONC 32.7 g/dL (33.2-36.2); MEAN PLATELET VOLUME 9.2 fL (7.4-10.4); MONOCYTES % (AUTO) 2 % (2-9); NEUTROPHILS % (AUTO) 97 % (42-75); PLATELET COUNT 512 x10^3/uL (130-400); RED BLOOD COUNT 3.62 x10^6/uL (4.38-5.82); RED CELL DISTRIBUTION WIDTH 13.8 % (9.4-14.8)
[2020-09-30 17:56] LABS: ALANINE AMINOTRANSFERASE 27 U/L (12-78); ALBUMIN 2.7 g/dL (3.4-5.0); ANION GAP 5 mmol/L (5-15); CALCIUM 8.8 mg/dL (8.5-10.1); CHLORIDE 107 mmol/L (98-107); CREATININE 1.23 mg/dL (0.7-1.3)
[2020-09-30 17:58] LABS: ALKALINE PHOSPHATASE 70 U/L (45-117); BILIRUBIN,TOTAL 1.3 mg/dL (0.2-1.0); TOTAL PROTEIN 6.6 g/dL (6.4-8.2)
[2020-09-30 18:11] LABS: MICROSCOPIC INDICATED
--- NOTE | 2020-09-30 18:53 | NUR ---
Report from Murray OLIVEIRA
[2020-09-30] MEDS ORDERED: VANCOMYCIN PER PHARMACY MC PRN ×3 (19:30→20:45)
[2020-09-30] MEDS ORDERED: AMPICILLIN/SULBACTAM 3 GM in SODIUM CHLORIDE 0.9% 100 ML IV ONE (19:30)
[2020-09-30] MEDS ORDERED: VANCOMYCIN 2,000 MG in SODIUM CHLORIDE 0.9% 500 ML IV ONE (20:00)
[2020-09-30] MEDS ORDERED: PHARMACOKINETIC CONSULTATION MC ONE ×2 (20:00→21:00)
--- NOTE | 2020-09-30 20:09 | NUR ---
Report to Jerry OLIVEIRA
[2020-09-30] MEDS ORDERED: morphine SULFATE 10 MG/ML, 1ML IVPush PRN (20:30)
[2020-09-30] MEDS ORDERED: ONDANSETRON 2MG/ML, 2ML IVPush PRN (20:30)
[2020-09-30] MEDS ORDERED: LABETALOL 5MG/ML, 20ML IVPush PRN (20:30)
[2020-09-30] MEDS ORDERED: ACETAMINOPHEN 325 MG TABLET PO PRN (20:30)
[2020-09-30] MEDS ORDERED: POLYETHYLENE GLYCOL 17 GM PACKET PO PRN (20:30)
[2020-09-30] MEDS ORDERED: MELATONIN 5 MG TABLET PO PRN (20:30)
[2020-09-30] MEDS ORDERED: PHARMACOKINETIC MONITORING MC PRN (21:00)
[2020-09-30 21:26] VITALS: BP 106/72
[2020-09-30] MEDS ORDERED: OMNIPAQUE 350 MG/ML, 100ML BOTTLE ONE (23:52)
[2020-10-01] MEDS: LACTATED RINGERS 1,000 ML IV SCH ×2 (00:45→09:35)
[2020-10-01] MEDS: AMPICILLIN/SULBACTAM 3 GM in SODIUM CHLORIDE 0.9% 100 ML IV SCH ×3 (01:48→13:36)
[2020-10-01 02:00] VITALS: BP 99/65
[2020-10-01 05:26] LABS: BASOPHILS % (AUTO) 1 % (0-1); EOSINOPHILS % (AUTO) 4 % (1-7); LYMPHOCYTES % (AUTO) 6 % (22-44); MEAN CORPUSCULAR HEMOGLOBIN 33.5 pg (27.5-34.5); MEAN CORPUSCULAR HGB CONC 33.6 g/dL (33.2-36.2); MEAN PLATELET VOLUME 9.8 fL (7.4-10.4); MONOCYTES % (AUTO) 5 % (2-9); NEUTROPHILS % (AUTO) 84 % (42-75); PLATELET COUNT 377 x10^3/uL (130-400); RED BLOOD COUNT 3.01 x10^6/uL (4.38-5.82); RED CELL DISTRIBUTION WIDTH 13.7 % (9.4-14.8)
[2020-10-01 05:34] LABS: ANION GAP 4 mmol/L (5-15); CALCIUM 8.1 mg/dL (8.5-10.1); CHLORIDE 110 mmol/L (98-107); CREATININE 0.87 mg/dL (0.7-1.3)
[2020-10-01 06:33] VITALS: BP 95/59
[2020-10-01] MEDS ORDERED: APIXABAN 5 MG TABLET ONE (09:25)
[2020-10-01] MEDS: METOPROLOL TARTRATE 50 MG TAB PO SCH (09:30)
[2020-10-01] MEDS ORDERED: METOPROLOL TARTRATE 50 MG TAB ONE (09:32)
[2020-10-01] MEDS: APIXABAN 5 MG TABLET PO SCH ×2 (09:35→21:31)
[2020-10-01 15:12] LABS: C-REACTIVE PROTEIN, QUANT 6.6 mg/dL (0.02-0.49)
[2020-10-01] MEDS: DAPTOMYCIN 600 MG in SODIUM CHLORIDE 0.9% 100 ML IV SCH (15:25)
[2020-10-01 15:51] LABS: HCT (SEDRATE) 32.6 % (39.2-51.8)
[2020-10-01 15:56] VITALS: BP 107/69
[2020-10-01] MEDS: ERTAPENEM 1 GM in SODIUM CHLORIDE 0.9% 50 ML IV SCH (16:17)
[2020-10-01 18:41] VITALS: BP 109/71
[2020-10-01] MEDS ORDERED: VANCOMYCIN 1,700 MG in SODIUM CHLORIDE 0.9% 250 ML IV SCH (20:00)
[2020-10-02 02:21] VITALS: BP 107/65
[2020-10-02 06:55] VITALS: BP 105/72
[2020-10-02] MEDS: APIXABAN 5 MG TABLET PO SCH (08:36)
[2020-10-02] MEDS: METOPROLOL TARTRATE 50 MG TAB PO SCH (08:37)
[2020-10-02] MEDS ORDERED: ALBUTEROL SULFATE 2.5 MG/3 ML NPPB SCH (09:30)
[2020-10-02 09:52] LABS: BASOPHILS % (AUTO) 1 % (0-1); EOSINOPHILS % (AUTO) 5 % (1-7); LYMPHOCYTES % (AUTO) 18 % (22-44); MEAN CORPUSCULAR HGB CONC 34.1 g/dL (33.2-36.2); MEAN PLATELET VOLUME 9.1 fL (7.4-10.4); MONOCYTES % (AUTO) 11 % (2-9); NEUTROPHILS % (AUTO) 65 % (42-75); PLATELET COUNT 379 x10^3/uL (130-400); RED BLOOD COUNT 3.18 x10^6/uL (4.38-5.82); RED CELL DISTRIBUTION WIDTH 13.4 % (9.4-14.8)
[2020-10-02] MEDS: BENZONATATE 100 MG CAPSULE PO SCH ×2 (09:56→16:07)
[2020-10-02] MEDS ORDERED: ALBUTEROL SULFATE 2.5 MG/3 ML NPPB PRN (10:00)
[2020-10-02 10:02] LABS: ALBUMIN 2.5 g/dL (3.4-5.0); CALCIUM 8.6 mg/dL (8.5-10.1)
[2020-10-02 10:07] LABS: ALANINE AMINOTRANSFERASE 20 U/L (12-78); ALKALINE PHOSPHATASE 61 U/L (45-117); BILIRUBIN,TOTAL 0.4 mg/dL (0.2-1.0); CREATININE 0.85 mg/dL (0.7-1.3); TOTAL PROTEIN 6.1 g/dL (6.4-8.2)
[2020-10-02 10:13] LABS: ANION GAP 4 mmol/L (5-15); CHLORIDE 110 mmol/L (98-107)
[2020-10-02] MEDS ORDERED: BENZ-17 PO (12:10)
[2020-10-02] MEDS: DAPTOMYCIN 600 MG in SODIUM CHLORIDE 0.9% 100 ML IV SCH (12:25)
[2020-10-02] MEDS: ERTAPENEM 1 GM in SODIUM CHLORIDE 0.9% 50 ML IV SCH (13:04)
[2020-10-02 13:23] VITALS: BP 167/96
[2020-10-02 13:49] VITALS: BP 108/72
== END 2020-10-02 18:00 | disposition home or self-care (01) | DRG 920 ==
LOC: ED 17:10 → EDIP 19:42 → 4NE 20:37
PROVIDERS: ADMIT Internal Medicine; ATTEND Hospitalist
PROC: 02HV33Z Insertion of Infusion Device into Superior Vena Cava, Percutaneous Approach (ICD-10-PCS; principal; 2020-10-02)
PROC: B548ZZA Ultrasonography of Superior Vena Cava, Guidance (ICD-10-PCS; 2020-10-02)
PROC: B5181ZA Fluoroscopy of Superior Vena Cava using Low Osmolar Contrast, Guidance (ICD-10-PCS; 2020-10-02)
DX: N99.840 Postprocedural hematoma of a genitourinary system organ or structure following a genitourinary system procedure (principal); D68.59 Other primary thrombophilia; D63.8 Anemia in other chronic diseases classified elsewhere; I25.2 Old myocardial infarction; I48.91 Unspecified atrial fibrillation; N20.0 Calculus of kidney; Z79.01 Long term (current) use of anticoagulants; Z86.711 Personal history of pulmonary embolism; Z86.718 Personal history of other venous thrombosis and embolism; Z85.46 Personal history of malignant neoplasm of prostate; Z82.0 Family history of epilepsy and other diseases of the nervous system; Z87.442 Personal history of urinary calculi; Z90.79 Acquired absence of other genital organ(s); Z90.49 Acquired absence of other specified parts of digestive tract; Z88.5 Allergy status to narcotic agent; I25.10 Atherosclerotic heart disease of native coronary artery without angina pectoris; B96.7 Clostridium perfringens [C. perfringens] as the cause of diseases classified elsewhere; D47.3 Essential (hemorrhagic) thrombocythemia; D72.829 Elevated white blood cell count, unspecified
CPT/HCPCS: 36415; 36573; 71045; 74177; 80048; 80053; 81001; 82550; 83605; 84145; 85025; 85651; 86140; 87040; 87086; 94640; 96365; G0378; J0295; J0878; J1335; J3370; Q9967; C1751; J7030; J7040; J7120

== ENCOUNTER → 2020-11-01 | Outpatient (CLI) | payer BC, MEDICARE ==
[~2020-11-01] MED LIST changes: +BENZ-17 PO
== END | disposition home or self-care (01) ==
LOC: CFH 13:09
PROVIDERS: ATTEND Internal Medicine Infectious Disease
DX: N20.0 Calculus of kidney (principal)
CPT/HCPCS: 74176